=== PATIENT | female | born 2000 | race African-American/Black ===

== ENCOUNTER 2024-10-30 18:00 | Inpatient (IN) | payer OTHER, SELFPAY ==
[2024-10-30] MEDS ORDERED: Lidocaine 1% (PF) 30 ML VIAL SC PRN (21:52)
[2024-10-30] MEDS ORDERED: Diphenoxylate HCl/Atropine Tablet PO PRN ×2 (21:52)
[2024-10-30] MEDS ORDERED: Carboprost 250 MCG/ML AMP IM PRN (21:52)
[2024-10-30] MEDS ORDERED: Methylergonovine 0.2 MG/ML VIAL IM PRN (21:52)
[2024-10-30] MEDS ORDERED: hydrALAZINE 20 MG/ML VIAL SLOW IVP PRN (21:52)
[2024-10-30] MEDS ORDERED: Tranexamic Acid 1,000 MG/10 ML VIAL IVP PRN (21:52)
[2024-10-30] MEDS ORDERED: Acetaminophen 500 MG TAB PO PRN (21:52)
[2024-10-30] MEDS ORDERED: Oxytocin 30 units/NS 500 ML 500 ML IV SCH (22:00)
[2024-10-31 04:45] LABS: Hematocrit 34.3 % (34.9-44.5); Hemoglobin 11.3 g/dL (12.0-15.5); Mean Corpuscular Hemoglobin 28.7 pg (27.0-33.0); Mean Corpuscular Volume 87.1 fL (81.6-98.3); Platelet Count 215 10x3/uL (150-450); Red Blood Cell (RBC) Count 3.94 10x6/uL (3.90-5.03); White Blood Cell (WBC) Count 9.01 10x3/uL (3.5-10.5)
[2024-10-31 05:27] LABS: Syphilis Antibody Index 0.12 S/CO (<1.00 Non-Reactive)
[2024-10-31 05:28] LABS: Hep B Surf Ag - L&D Non-Reactive S/CO (NonReactive)
[2024-10-31] MEDS: fentaNYL/Ropivacaine Epidural 100 ML ONE (10:00)
[2024-10-31] MEDS ORDERED: diphenhydrAMINE 50 MG/ML VIAL IVP PRN (10:08)
[2024-10-31] MEDS ORDERED: Communication Order-Pharmacy FS SCH (10:15)
[2024-10-31] MEDS ORDERED: fentaNYL 2 mcg/Ropivacaine 0.2% Epidural 100 ML CADD EPIDURAL SCH (10:15)
[2024-10-31] MEDS: Ondansetron PF 4 MG/2 ML Vial IVP PRN ×2 (11:37→19:24)
[2024-10-31 19:18] LABS: Analyzer IN Cardio CS NICU; Critical Notified By: CP.PH; RapidComm Collect By CBN; pH (Cord, venous) 7.315 (7.250-7.350)
[2024-10-31 19:20] LABS: Analyzer IN Cardio CS NICU; Critical Notified By: CP.PH; RapidComm Collect By CBN
[2024-10-31] MEDS: Ibuprofen 800 MG TAB PO PRN (21:21)
[2024-10-31] MEDS ORDERED: Boostrix 0.5 ML (Tdap) VIAL (>/=7 yrs of age) IM ONE (22:07)
[2024-10-31] MEDS ORDERED: Bisacodyl 10 MG SUPP PR PRN (22:07)
[2024-10-31] MEDS ORDERED: diphenhydrAMINE 25 MG CAP PO PRN (22:07)
[2024-10-31] MEDS ORDERED: Methylergonovine 0.2 MG/ML VIAL IM PRN (22:07)
[2024-10-31] MEDS ORDERED: Lanolin Ointment 7 GM TUBE TOP PRN (22:07)
[2024-10-31] MEDS ORDERED: Ondansetron PF 4 MG/2 ML Vial IVP PRN (22:07)
[2024-10-31] MEDS ORDERED: Oxytocin 30 units/NS 500 ML 500 ML IV SCH (22:07)
[2024-10-31] MEDS ORDERED: hydrALAZINE 20 MG/ML VIAL SLOW IVP PRN (22:07)
[2024-10-31] MEDS ORDERED: Milk Of Magnesia 30 ML UDCUP PO PRN (22:07)
[2024-10-31] MEDS: Oxytocin 30 units/NS 500 ML 500 ML ONE (22:18)
[2024-10-31] MEDS: Benzocaine-Menthol 82.5 ML CAN TOP PRN (22:24)
[2024-10-31] MEDS ORDERED: HYDROcodone/Acetaminophen 5/325 mg Tablet PO PRN (22:47)
[2024-11-01] MEDS: Ibuprofen 800 MG TAB PO SCH (05:13)
[2024-11-01] MEDS: Ferrous Sulfate 325 MG TAB PO SCH (07:15)
[2024-11-01] MEDS: Acetaminophen 325 MG TAB PO PRN (12:30)
[2024-11-02 08:21] VITALS: BP 102/58; TEMP 98.6
[2024-11-02] MEDS: Preparation H Ointment 28 GM TUBE PR PRN (12:41)
== END 2024-11-02 17:25 | disposition home or self-care (01) | DRG 807 ==
LOC: UNDOADMIN 21:34 → CSHLD 21:34 → CSHPP 10-31 21:27
PROVIDERS: ADMIT Obstetrics & Gynecology; ATTEND Obstetrics & Gynecology
PROC: 3E033VJ Introduction of Other Hormone into Peripheral Vein, Percutaneous Approach (ICD-10-PCS; 2024-10-30)
PROC: 10H073Z Insertion of Monitoring Electrode into Products of Conception, Via Natural or Artificial Opening (ICD-10-PCS; principal; 2024-10-31)
PROC: 10D07Z6 Extraction of Products of Conception, Vacuum, Via Natural or Artificial Opening (ICD-10-PCS; principal; 2024-10-31)
PROC: 10H07YZ Insertion of Other Device into Products of Conception, Via Natural or Artificial Opening (ICD-10-PCS; principal; 2024-10-31)
PROC: 10907ZC Drainage of Amniotic Fluid, Therapeutic from Products of Conception, Via Natural or Artificial Opening (ICD-10-PCS; principal; 2024-10-31)
DX: O35.8XX0 Maternal care for other (suspected) fetal abnormality and damage, not applicable or unspecified (principal); Z37.0 Single live birth; O99.02 Anemia complicating childbirth; R82.71 Bacteriuria; O75.89 Other specified complications of labor and delivery; O66.0 Obstructed labor due to shoulder dystocia; Z3A.39 39 weeks gestation of pregnancy
CPT/HCPCS: 51701; 51702; 82805; 85027; 86780; 86850; 86900; 86901; 87340; J2405; J7120